=== PATIENT | male | born 1965 | race Caucasian/White ===

== ENCOUNTER 2016-08-25 17:16 | Emergency (ER) | payer OTHER ==
[~2016-08-25] VITALS: Ht 188 cm; Wt 120.0 kg
[~2016-08-25 17:16] MED LIST: ALBU17I
[2016-08-25 17:19] VITALS: BP 129/89; PULSE 98; RESP 20; TEMP 99.2; O2SAT 91; O2SAT 92
[2016-08-25] MEDS ORDERED: LISI-519 PO (18:05)
[2016-08-25] MEDS ORDERED: ALBU0.63 NEB (18:05)
[2016-08-25] MEDS ORDERED: IBUP400T20 PO (18:05)
[2016-08-25 18:06] VITALS: BP 131/67; PULSE 98; RESP 20; O2SAT 95
[2016-08-25 18:09] VITALS: O2SAT 95
--- NOTE | 2016-08-25 18:13 | PD ---
HPI Chief Complaint: Respiratory Symptoms Time Seen by Provider: 18:02 Travel History International Travel<30 days: No Contact w/Intl Traveler<30days: No Traveled to known affect area: No History of Present Illness HPI 51yo M with PMH of asthma presents to the ED with c/o sob, fever and cough for a few days. States he used his albuterol pump 4 times today but did not help. Pt is a former smoker. Does not use oxygen at home. Denies history of intubation for asthma. Denies any chest pain, n/v, abdominal pain, focal weakness or numbness. PFSH Past Medical History Hx Anticoagulant Therapy: No Asthma: Yes Heart Rhythm Problems: Yes (MURMUR) Cardiac Catheterization: No Cardiovascular Problems: Yes (HTN) High Cholesterol: No Congestive Heart Failure: No Diabetes: No Diminished Hearing: No Hiatal Hernia: Yes (States that it protruded near his "bellybutton".) Hypertension: No Respiratory: Yes (ASTHMA) Myocardial Infarction: No Influenza Vaccination: No Past Surgical History Coronary Artery Bypass Graft: No Other Surgery: Yes (SURG FOR CAT SCRATCH) Social History Alcohol Use: Yes (3 BEERS PER DAY) Tobacco Use: No Substance Use: No Allergies-Medications (Allergen,Severity, Reaction): Coded Allergies: Cultivated Oat Pollen (Verified Allergy, Mild, 08/25/16) Grass (Verified Allergy, Mild, 08/25/16) Reported Meds & Prescriptions Reported Meds & Active Scripts Active Reported Lisinopril 5 Mg Tab 5 Mg PO DAILY Ibuprofen 400 Mg Tab 400 Mg PO Q6H PRN Albuterol Neb (Albuterol Sulfate) 0.63 Mg/3 Ml Neb 0.63 Mg NEB Q6HR NEB PRN Review of Systems Except as stated in HPI: all other systems reviewed are Neg Physical Exam Narrative GENERAL: 51yo M in mild distress. SKIN: Focused skin assessment warm/dry. HEAD: Atraumatic. Normocephalic. EYES: Pupils equal and round. No scleral icterus. No injection or drainage. ENT: No nasal bleeding or discharge. Mucous membranes pink and moist. NECK: Trachea midline. No JVD. CARDIOVASCULAR: Regular rate and rhythm. No murmur appreciated. RESPIRATORY: Expiratory wheezing bilaterally. Pt is saturating at 95% on RA and speaking in complete sentences. GASTROINTESTINAL: Abdomen soft, non-tender, nondistended. No rebound tenderness or guarding. MUSCULOSKELETAL: No obvious deformities. No clubbing. No cyanosis. No edema. No calf tenderness. NEUROLOGICAL: Awake and alert. No obvious cranial nerve deficits. Motor grossly within normal limits. Normal speech. PSYCHIATRIC: Appropriate mood and affect; insight and judgment normal. Data Data Last Documented VS Vital Signs Date Time Temp Pulse Resp B/P Pulse Ox O2 Delivery O2 Flow Rate FiO2 08/25/16 19:05 103.1 111 24 95 Room Air 08/25/16 18:06 131/67 Orders Complete Blood Count With Diff (08/25/16 18:07) Basic Metabolic Panel (Bmp) (08/25/16 18:07) B-Type Natriuretic Peptide (08/25/16 18:07) Act Partial Throm Time (Ptt) (08/25/16 18:07) Prothrombin Time / Inr (Pt) (08/25/16 18:07) Ckmb (Isoenzyme) Profile (08/25/16 18:07) Troponin I (08/25/16 18:07) Iv Access Insert/Monitor (08/25/16 18:07) Electrocardiogram (08/25/16 18:07) Ecg Monitoring (08/25/16 18:07) Oximetry (08/25/16 18:07) Oxygen Administration (08/25/16 18:07) Chest, Single Ap (08/25/16 18:07) Sodium Chloride 0.9% Flush (Ns Flush) (08/25/16 18:15) Methylprednisolone So Succ Inj (Solumedr (08/25/16 18:15) Albuterol-Ipratropium Neb (Duoneb Neb) (08/25/16 18:15) Lactic Acid Sepsis Protocol (08/25/16 18:07) Blood Culture (08/25/16 18:50) Ceftriaxone Inj (Rocephin Inj) (08/25/16 19:00) Azithromycin (Zithromax) (08/25/16 19:00) CKMB (08/25/16 18:18) CKMB% (08/25/16 18:18) Acetaminophen (Tylenol) (08/25/16 19:15) Sodium Chlor 0.9% 1000 Ml Inj (Ns 1000 M (08/25/16 19:30) Labs Laboratory Tests Test 08/25/16 18:18 White Blood Count 9.4 TH/MM3 Red Blood Count 4.65 MIL/MM3 Hemoglobin 14.6 GM/DL Hematocrit 43.3 % Mean Corpuscular Volume 93.2 FL Mean Corpuscular Hemoglobin 31.5 PG Mean Corpuscular Hemoglobin 33.8 % Concent Red Cell Distribution Width 12.2 % Platelet Count 202 TH/MM3 Mean Platelet Volume 9.2 FL Neutrophils (%) (Auto) 80.5 % Lymphocytes (%) (Auto) 10.4 % Monocytes (%) (Auto) 7.9 % Eosinophils (%) (Auto) 0.1 % Basophils (%) (Auto) 1.1 % Neutrophils # (Auto) 7.6 TH/MM3 Lymphocytes # (Auto) 1.0 TH/MM3 Monocytes # (Auto) 0.7 TH/MM3 Eosinophils # (Auto) 0.0 TH/MM3 Basophils # (Auto) 0.1 TH/MM3 CBC Comment AUTO DIFF Differential Total Cells 100 Counted Neutrophils % (Manual) 78 % Band Neutrophils % 5 % Lymphocytes % 10 % Monocytes % 7 % Neutrophils # (Manual) 7.8 TH/MM3 Differential Comment FINAL DIFF MANUAL Platelet Estimate NORMAL Platelet Morphology Comment NORMAL Red Cell Morphology Comment NORMAL Prothrombin Time 10.9 SEC Prothromb Time International 1.0 RATIO Ratio Activated Partial 31.5 SEC Thromboplast Time Sodium Level 133 MEQ/L Potassium Level 3.7 MEQ/L Chloride Level 97 MEQ/L Carbon Dioxide Level 25.8 MEQ/L Anion Gap 10 MEQ/L Blood Urea Nitrogen 17 MG/DL Creatinine 0.98 MG/DL Estimat Glomerular Filtration 80 ML/MIN Rate Random Glucose 160 MG/DL Lactic Acid Level 1.2 mmol/L Calcium Level 8.1 MG/DL Total Creatine Kinase 527 U/L Creatine Kinase MB 1.3 NG/ML Creatine Kinase MB % 0.2 % Troponin I LESS THAN 0.02 NG/ML B-Type Natriuretic Peptide 8 PG/ML MDM Medical Decision Making Medical Screen Exam Complete: Yes Emergency Medical Condition: Yes Interpretation(s) EKG: Sinus tachycardia at 105bpm. Normal axis. No ST segment elevation or depression. Differential Diagnosis Asthma exacerbation vs. pneumonia vs. URI Narrative Course 51yo M with PMH of asthma but also a former smoker here with sob, cough and fever for a few days. Pt just used albuterol in the waiting room and did not help. It was documented that he was saturating at 92% on triage but he was saturating at 95% on room air in the medical room when I evaluated him. Bilateral expiratory wheezing. Will give duonebs x3, methylprednisolone and check CXR, EKG and labs. Labs reviewed, no leukocytosis. No bandemia. CPK elevated at 527. NS IVF given. Troponin negative. Lactic acid normal at 1.2. BNP 8. CXR showed right upper lobe pneumonia. Pt has no risk factors for TB. Denies history of tuberculosis, hemoptysis, recent incarceration, homelessness, HIV or recent traveling outside the country. Blood cultures sent and pt given ceftriaxone and azithromycin for community acquired pneumonia. Pt has not been hospitalized in the last 3 months. Pt reevaluated at bedside and feels better. Lungs are now clear bilaterally. Repeat temperature showed fever of 103.1F. Pt given acetaminophen 650mg PO. Repeat temp 100.6F. Pt is adamant about going home. States he will follow up with his PMD tomorrow. Pt tolerating PO. Return precautions given. Diagnosis Primary Impression: Pneumonia Qualified Code: J18.1 - Pneumonia of right upper lobe due to infectious organism Additional Impression: Asthma exacerbation Patient Instructions: General Instructions Departure Forms: Tests/Procedures Additional Instructions: Please follow up with your PMD in 1-2 days. Return to the ED if symptoms worsen. Med/Other Pt SpecificInfo: Prescription(s) given Scripts Albuterol 18 GM Inh (Ventolin Hfa 18 GM Inh)90 Mcg/Act Aer2 Puff INH Q4H PRN ( SHORTNESS OF BREATH) #1 INHALER Ref 0 Prov:Chanelle Serrano DO 08/25/16 Prednisone (Deltasone)20 Mg Tab20 Mg PO BID 5 Days Ref 0 Prov:Chanelle Serrano DO 08/25/16 Levofloxacin (Levaquin)750 Mg Tablet1 Tab PO DAILY 5 Days Prov:Chanelle Serrano DO 08/25/16 Disposition: 01 DISCHARGE HOME Condition: Stable Chanelle Serrano DO Aug 25, 2016 18:13
[2016-08-25] MEDS ORDERED: methylPREDNISolone SOD SUCC 125 MG/2 ML VIAL IVP ONE (18:15)
[2016-08-25] MEDS ORDERED: SODIUM CHLORIDE 0.9% FLUSH 10 ML FLUSH IVF PRN (18:15)
[2016-08-25] MEDS: RESP: ALBUTEROL 2.5 MG/IPRATROPIUM 0.5 MG NEB (SCH) INH ×2 (18:16→18:17)
--- NOTE | 2016-08-25 18:29 | RADHPO ---
EXAM DATE/TIME: 08/25/2016 18:09 [facility] COMPARISON: No previous studies available for comparison. EXTERNAL COMPARISON : [facility] INDICATIONS : Fever and shortness of breath. MEDICAL HISTORY : Asthma. SURGICAL HISTORY : None. ENCOUNTER: Initial ACUITY: 2 days PAIN SCORE: 0/10 LOCATION: Bilateral chest FINDINGS: Dense consolidation seen in the right upper lobe. Lungs are otherwise clear. No pleural effusion. No pneumothorax seen. Heart size normal. CONCLUSION: Right upper lobe pneumonia. Followup to resolution recommended. Aidan Hall MD on August 25, 2016 at 18:26 Board Certified Radiologist. This report was verified electronically.
[2016-08-25 18:42] LABS: AUTOMATED NEUTROPHIL # 7.6 TH/MM3 (1.8-7.7); BASOPHIL # 0.1 TH/MM3 (0-0.2); BASOPHIL % 1.1 % (0.0-2.0); EOSINOPHIL % 0.1 % (0.0-4.0); HEMATOCRIT 43.3 % (39.0-51.0); LYMPH % 10.4 % (9.0-44.0); MEAN CELL VOLUME 93.2 FL (80.0-100.0); MEAN CORPUSCULAR HEMOGLOBIN 31.5 PG (27.0-34.0); MEAN CORPUSCULAR HGB CONC 33.8 % (32.0-36.0); MONO % 7.9 % (0.0-8.0); NEUT % 80.5 % (16.0-70.0); PLATELET COUNT 202 TH/MM3 (150-450); RED BLOOD COUNT 4.65 MIL/MM3 (4.50-5.90); RED CELL DISTRIBUTION WIDTH 12.2 % (11.6-17.2); WHITE BLOOD COUNT 9.4 TH/MM3 (4.0-11.0)
[2016-08-25 18:47] LABS: HEMO FLAGS AUTO DIFF
[2016-08-25 18:54] LABS: CHLORIDE 97 MEQ/L (98-107); POTASSIUM 3.7 MEQ/L (3.5-5.1); SODIUM (NA) 133 MEQ/L (136-145)
[2016-08-25 18:57] LABS: ANION GAP 10 MEQ/L (5-15); BICARBONATE 25.8 MEQ/L (21.0-32.0)
[2016-08-25 18:58] LABS: APTT (PATIENT) 31.5 SEC (24.3-30.1); BLOOD UREA NITROGEN 17 MG/DL (7-18); PROTHROMBIN TIME - PATIENT 10.9 SEC (9.8-11.6)
[2016-08-25] MEDS ORDERED: AZITHROMYCIN 250 MG TAB PO ONE (19:00)
[2016-08-25] MEDS ORDERED: cefTRIAXone INJ 1,000 MG in SODIUM CHLORIDE 0.9% INJ 100 ML IV ONE (19:00)
[2016-08-25 19:01] LABS: GLOMERULAR FILTRATION RATE 80 ML/MIN (>89)
[2016-08-25 19:04] LABS: CREATINE KINASE 527 U/L (39-308)
[2016-08-25 19:05] VITALS: PULSE 111; RESP 24; TEMP 103.1; O2SAT 95
[2016-08-25 19:15] LABS: BANDS 5 % (0-6); NEUTROPHIL # MANUAL DIFF 7.8 TH/MM3 (1.8-7.7); PLATELET ESTIMATE SMEAR NORMAL (NORMAL); PLATELET MORPHOLOGY NORMAL (NORMAL); POLYS (SEG NEUTROPHILS) 78 % (16-70); SCAN/DIFF FINAL DIFF MANUAL; WBC DIFF SAMPLE 100
[2016-08-25] MEDS ORDERED: ACETAMINOPHEN 325 MG TAB PO ONE (19:15)
[2016-08-25 19:16] LABS: CKMB 1.3 NG/ML (0.5-3.6)
[2016-08-25] MEDS ORDERED: SODIUM CHLOR 0.9% 1000 ML INJ 1,000 ML IV ONE (19:30)
[2016-08-25 19:54] VITALS: TEMP 100.6
[2016-08-25] MEDS ORDERED: PRED-503 PO (19:56)
[2016-08-25] MEDS ORDERED: VENTAER INH (19:56)
[2016-08-25] MEDS ORDERED: LEVA750T9 PO (19:56)
[2016-08-25 20:07] VITALS: BP 161/75
--- NOTE | 2016-08-26 07:11 | EKG ---
Date Performed: 08/25/2016 Time Performed: 18:42:22 PTAGE: 51 years EKG: SINUS TACHYCARDIA MILD INTRAVENTRICULAR CONDUCTION DELAY ABNORMAL RHYTHM ECG COMPARED TO AR IOR ELECTROCARDIOGRAM, Rate has increased. PREVIOUS TRACING : 02/11/2006 16.45 DOCTOR: Andrea Owens Interpretating Date/Time 08/26/2016 07:10:47
== END 2016-08-25 20:10 | disposition home or self-care (01) ==
LOC: PHED 17:16
DX: J18.1 Lobar pneumonia, unspecified organism (principal); J45.901 Unspecified asthma with (acute) exacerbation; Z87.891 Personal history of nicotine dependence
CPT/HCPCS: 71010; 80048; 82550; 82552; 83605; 83880; 84484; 85007; 85027; 85610; 85730; 86403; 87040; 87205; 93005; 94640; 94664; 96365; 96375; 99285; J0696; J2930; J7030